=== PATIENT | male | born 1935 | race Two or more races ===

== ENCOUNTER 2018-06-09 07:08 | Outpatient (CLI) | payer OTHER | END 2018-06-09 15:58 | disposition home or self-care (01) | LOC: TOM 07:08 | DX: C61 Malignant neoplasm of prostate (principal); C25.8 Malignant neoplasm of overlapping sites of pancreas | CPT/HCPCS: 74177; Q9965 ==

== ENCOUNTER 2018-06-22 07:35 | Outpatient (CLI) | payer OTHER | END 2018-06-22 13:45 | disposition home or self-care (01) | LOC: NUCLEAR 07:35 | DX: C61 Malignant neoplasm of prostate (principal); Z08 Encounter for follow-up examination after completed treatment for malignant neoplasm | CPT/HCPCS: 78306; 78320; A9503 ==

== ENCOUNTER 2023-01-28 07:24 | Emergency (ER) | payer OTHER ==
[~2023-01-28] VITALS: Ht 175.3 cm; Wt 70.3 kg
[2023-01-28] MEDS ORDERED: XARELTO15 M1 PO (07:41)
[2023-01-28] MEDS ORDERED: LISINOPRIL10 MG PO (07:42)
[2023-01-28] MEDS ORDERED: TOPROL XL25 M1 PO (07:44)
[2023-01-28] MEDS ORDERED: LUPRON DEPOT22.5 MG IM (07:45)
[2023-01-28] MEDS ORDERED: IRO-PLEX LIQUI120 ML PO (07:46)
[2023-01-28] MEDS ORDERED: TIROSINT25 MCG PO (07:47)
== END 2023-01-28 12:41 | disposition home or self-care (01) ==
LOC: ER 07:24
PROVIDERS: Emergency Medicine
DX: R31.9 Hematuria, unspecified (principal)

== ENCOUNTER 2023-02-03 12:14 | Inpatient (IN) | payer OTHER ==
[~2023-02-03] VITALS: Ht 175.3 cm; Wt 69.9 kg
[~2023-02-03 12:14] MED LIST: IRO-PLEX LIQUI120 ML PO; LISINOPRIL10 MG PO; LUPRON DEPOT22.5 MG IM; TIROSINT25 MCG PO; TOPROL XL25 M1 PO; XARELTO15 M1 PO
[2023-02-04] MEDS ORDERED: B-121000 MC2 (08:52)
[2023-02-04] MEDS ORDERED: B-121000 MC1 (08:52)
[2023-02-04] MEDS ORDERED: DIGOXIN125 MCG (08:52)
== END 2023-02-07 15:59 | disposition home or self-care (01) | DRG 178 ==
LOC: ER 12:14 → MEDJ 15:54 → SEC-K 15:54 → MEDJ 16:21
PROVIDERS: Emergency Medicine; ADMIT Specialist; ATTEND Specialist
PROC: BW24ZZZ Computerized Tomography (CT Scan) of Chest and Abdomen (ICD-10-PCS; 2023-02-03)
PROC: XW033E5 Introduction of Remdesivir Anti-infective into Peripheral Vein, Percutaneous Approach, New Technology Group 5 (ICD-10-PCS; principal; 2023-02-04)
PROC: B24BZZZ Ultrasonography of Heart with Aorta (ICD-10-PCS; 2023-02-05)
PROC: 4A12X4Z Monitoring of Cardiac Electrical Activity, External Approach (ICD-10-PCS; 2023-02-05)
DX: U07.1 COVID-19 (principal); I50.30 Unspecified diastolic (congestive) heart failure; K86.9 Disease of pancreas, unspecified; K43.9 Ventral hernia without obstruction or gangrene; I11.0 Hypertensive heart disease with heart failure; E03.9 Hypothyroidism, unspecified; I48.91 Unspecified atrial fibrillation; Z95.0 Presence of cardiac pacemaker

== ENCOUNTER 2023-04-04 13:47 | Inpatient (IN) | payer OTHER ==
[~2023-04-04] VITALS: Ht 162.6 cm; Wt 81.6 kg
[~2023-04-04 13:47] MED LIST changes: +B-121000 MC1; +B-121000 MC2; +DIGOXIN125 MCG
[2023-04-04 16:20] LABS: HEMATOCRIT 39.8 % (39.0-48.0); MEAN CELL VOLUME 90.2 fL (80.0-100.00); MEAN CORPUSCULAR HEMOGLOBIN 29.4 pg (27.00-32.0); MEAN CORPUSCULAR HGB CONC 32.6 g/dl (32.0-36.0); PLATELET COUNT 174 K/uL (150-450); RED BLOOD COUNT 4.41 M/uL (4.00-6.00); RED CELL DISTRIBUTION WIDTH 15.6 % (11.5-14.5)
[2023-04-04 16:36] LABS: ALBUMIN 3.5 gm/dL (3.4-5.0); BILIRUBIN TOTAL 0.94 mg/dL (0.3-1.2); CALCIUM 9.1 mg/dL (8.5-10.1); CREATININE SERUM 1.52 mg/dL (0.70-1.30); GFR 43.4; POTASSIUM 4.19 mEq/L (3.5-5.1); TOTAL PROTEIN 6.5 gm/dL (6.4-8.2)
[2023-04-04 16:38] LABS: ALT/SGPT 32 U/L (12-78); AST/SGOT 23 U/L (15-37); LDH 239 U/L (87-241); PHOSPHOKINASE CREATININE 90 U/L (39-308)
[2023-04-04 18:58] LABS: ABG PH 7.368 (7.35-7.45); ABG pCO2 42.4 mmHg (35-45); SaO2 89.6 %
[2023-04-04 18:59] LABS: BASE EXCESS -1.5 mmol/l; BICARBONATE 23.9 mmol/l (23-25); Tco2 25.2 mmol/l; allen test SATISFACTORY; o2 21 %; puncture site RADIAL LEFT
[2023-04-04 19:07] LABS: URINE APPEARANCE Clear; URINE BILIRRUBIN Negative (NEGATIVE); URINE BLOOD Large; URINE COLOR Yellow; URINE GLUCOSE Negative (NEGATIVE); URINE LEUKOCYTE Negative; URINE NITRATE Negative; URINE PROTEIN Negative (NEGATIVE); URINE UROBILINOGEN 0.2 E.U./dl
[2023-04-04 19:10] LABS: URINE BACTERIA 84.3 uL (0.0-1933); URINE EPITHELIAL CELLS 8.6 uL (0.0-38.8); URINE RBC 217.4 uL (0.0-20.8); URINE WBC 5.8 uL (0.0-23.2)
[2023-04-05 02:33] LABS: ABG PH 7.367 (7.35-7.45); ABG PO2 61.7 mmHg (80-100); ABG pCO2 46.6 mmHg (35-45); BASE EXCESS 0.3 mmol/l; BICARBONATE 26.1 mmol/l (23-25); SaO2 90.4 %; Tco2 27.6 mmol/l; allen test SATISFACTORY; o2 35 %; puncture site RADIAL RIGHT
[2023-04-05 06:46] LABS: ABG PH 7.321 (7.35-7.45); ABG PO2 210.2 mmHg (80-100); ABG pCO2 55.4 mmHg (35-45); BASE EXCESS 0.7 mmol/l; SaO2 99.7 %; Tco2 29.7 mmol/l; allen test SATISFACTORY; o2 100 %; puncture site RADIAL RIGHT
[2023-04-05 08:35] LABS: BILIRUBIN TOTAL 1.09 mg/dL (0.3-1.2); CALCIUM 8.4 mg/dL (8.5-10.1); CREATININE SERUM 1.45 mg/dL (0.70-1.30); GFR 45.82; GLOBULINA 2.2 G/DL (2.4-3.5); MAGNESIUM 2.4 mg/dL (1.8-2.4); PHOSPHOROUS 4.6 mg/dL (2.5-4.9); POTASSIUM 4.07 mEq/L (3.5-5.1); T4 TOTAL 4.91 UG/DL (4.5-12.1); TOTAL PROTEIN 5.2 gm/dL (6.4-8.2); TSH 3.51 uIU/mL (0.358-3.74)
[2023-04-05 08:39] LABS: HEMATOCRIT 36.4 % (39.0-48.0); HEMOGLOBIN 11.9 g/dL (13-16.00); MEAN CELL VOLUME 89.8 fL (80.0-100.00); MEAN CORPUSCULAR HEMOGLOBIN 29.3 pg (27.00-32.0); MEAN CORPUSCULAR HGB CONC 32.6 g/dl (32.0-36.0); PLATELET COUNT 158 K/uL (150-450); RED BLOOD COUNT 4.05 M/uL (4.00-6.00); RED CELL DISTRIBUTION WIDTH 15.7 % (11.5-14.5)
[2023-04-05 09:23] LABS: ERYTHROCYTE SEDIMENTATION RATE 3 mm/hr
[2023-04-05 10:35] LABS: ABG pCO2 48.5 mmHg (35-45)
[2023-04-05 10:39] LABS: ABG PO2 57.5 mmHg (80-100); BASE EXCESS 2.1 mmol/l; SaO2 89.1 %; Tco2 29.5 mmol/l; allen test SATISFACTORY; o2 50 %; puncture site RADIAL RIGHT
[2023-04-06 06:06] LABS: ABG PH 7.398 (7.35-7.45); ABG PO2 168.9 mmHg (80-100); ABG pCO2 49.3 mmHg (35-45); BASE EXCESS 3.9 mmol/l; BICARBONATE 29.8 mmol/l (23-25); SaO2 99.5 %; Tco2 31.3 mmol/l
[2023-04-06 06:07] LABS: allen test SATISFACTORY; o2 50 %; puncture site RADIAL RIGHT
[2023-04-07 07:24] LABS: HEMATOCRIT 40.3 % (39.0-48.0); HEMOGLOBIN 12.9 g/dL (13-16.00); MEAN CELL VOLUME 91.3 fL (80.0-100.00); MEAN CORPUSCULAR HEMOGLOBIN 29.2 pg (27.00-32.0); PLATELET COUNT 166 K/uL (150-450); RED BLOOD COUNT 4.41 M/uL (4.00-6.00); RED CELL DISTRIBUTION WIDTH 15.6 % (11.5-14.5)
[2023-04-07 07:27] LABS: ALBUMIN 2.9 gm/dL (3.4-5.0); BILIRUBIN TOTAL 1.43 mg/dL (0.3-1.2); CALCIUM 8.8 mg/dL (8.5-10.1); CREATININE SERUM 1.61 mg/dL (0.70-1.30); GFR 40.61; GLOBULINA 2.4 G/DL (2.4-3.5); MAGNESIUM 2.5 mg/dL (1.8-2.4); PHOSPHOROUS 3.7 mg/dL (2.5-4.9); POTASSIUM 4.28 mEq/L (3.5-5.1); TOTAL PROTEIN 5.3 gm/dL (6.4-8.2)
[2023-04-07] MEDS ORDERED: QUETIAPINE FUMA25 MG (10:32)
[2023-04-07] MEDS ORDERED: FUSION PLUS CA1 EACH (10:32)
[2023-04-07] MEDS ORDERED: PRE PROTEIN1 EACH (10:32)
[2023-04-07] MEDS ORDERED: FAMOTIDINE40 MG (10:32)
[2023-04-07] MEDS ORDERED: FUROSEMIDE20 MG (10:32)
[2023-04-07] MEDS ORDERED: ENALAPRIL MALE2.5 MG (10:32)
[2023-04-07] MEDS ORDERED: MELATONIN5 M2 (10:33)
[2023-04-07] MEDS ORDERED: DORZOLAMIDE HCL10 ML (10:33)
[2023-04-08 07:08] LABS: CALCIUM 8.6 mg/dL (8.5-10.1); CREATININE SERUM 1.5 mg/dL (0.70-1.30); GFR 44.07; POTASSIUM 4.21 mEq/L (3.5-5.1)
[2023-04-11 06:57] LABS: CALCIUM 8.2 mg/dL (8.5-10.1); CREATININE SERUM 1.16 mg/dL (0.70-1.30); GFR 59.28; MAGNESIUM 2.5 mg/dL (1.8-2.4); PHOSPHOROUS 2.4 mg/dL (2.5-4.9); POTASSIUM 3.84 mEq/L (3.5-5.1)
[2023-04-11] MEDS ORDERED: FAMOTIDINE40 MG PO (14:15)
[2023-04-11] MEDS ORDERED: ISOSORBIDE MONO30 MG PO (14:15)
[2023-04-11] MEDS ORDERED: FUROSEMIDE20 MG PO (14:15)
[2023-04-11] MEDS ORDERED: ENALAPRIL MALE2.5 MG PO (14:15)
[2023-04-11] MEDS ORDERED: QUETIAPINE FUM100 MG PO (14:15)
[2023-04-11] MEDS ORDERED: TIROSINT25 MCG PO (14:15)
[2023-04-11] MEDS ORDERED: XARELTO15 M1 PO (14:15)
== END 2023-04-11 14:34 | disposition home or self-care (01) | DRG 291 ==
LOC: ER → ICU-2 20:25 → MEDI 04-06 10:36 → SURH 04-06 10:43 → SURG 04-06 11:12 → MEDI 04-08 12:38
PROVIDERS: Internal Medicine Geriatric Medicine; Nurse Practitioner Family; ADMIT Specialist; ATTEND Specialist
PROC: 4A12X4Z Monitoring of Cardiac Electrical Activity, External Approach (ICD-10-PCS; principal; 2023-04-04)
PROC: B246ZZZ Ultrasonography of Right and Left Heart (ICD-10-PCS; 2023-04-04)
PROC: BW21ZZZ Computerized Tomography (CT Scan) of Abdomen and Pelvis (ICD-10-PCS; 2023-04-04)
PROC: B020ZZZ Computerized Tomography (CT Scan) of Brain (ICD-10-PCS; 2023-04-04)
PROC: 5A0945A Assistance with Respiratory Ventilation, 24-96 Consecutive Hours, High Flow/Velocity Cannula (ICD-10-PCS; 2023-04-04)
PROC: BB24ZZZ Computerized Tomography (CT Scan) of Bilateral Lungs (ICD-10-PCS; 2023-04-07)
DX: I50.33 Acute on chronic diastolic (congestive) heart failure (principal); J96.01 Acute respiratory failure with hypoxia; I13.0 Hypertensive heart and chronic kidney disease with heart failure and stage 1 through stage 4 chronic kidney disease, or unspecified chronic kidney disease; I48.20 Chronic atrial fibrillation, unspecified; J91.8 Pleural effusion in other conditions classified elsewhere; J98.11 Atelectasis; F03.911 Unspecified dementia, unspecified severity, with agitation; F05 Delirium due to known physiological condition; N18.9 Chronic kidney disease, unspecified; I71.21 Aneurysm of the ascending aorta, without rupture; C61 Malignant neoplasm of prostate; E03.9 Hypothyroidism, unspecified; Z79.01 Long term (current) use of anticoagulants; Z95.0 Presence of cardiac pacemaker; Z86.16 Personal history of COVID-19; Z78.1 Physical restraint status